=== PATIENT | female | born 1955 | race Caucasian/White ===

== ENCOUNTER 2016-09-24 09:19 | Emergency (ER) | payer MEDICARE ==
[~2016-09-24] VITALS: Ht 167.6 cm; Wt 76.3 kg
[~2016-09-24 09:19] MED LIST: AMBI10TA PO; BUPR100CR PO; DIAZ2 PO; FLUT1SPR5 EACH NARE; GABA100C4 PO; LEXA5TAB PO; LORA-392 PO; MILK140C PO; MULT-135 PO; NADO1TAB16 PO; OXYC1CAP PO; VASO10TA8 PO; VITACAP9 PO; XIFA200T4 PO; ZANA2CAP PO; [UNRECOGNIZED DRUG - CODE] PO
[2016-09-24 09:22] VITALS: BP 137/70; PULSE 74; RESP 16; TEMP 97.8; O2SAT 95
[2016-09-24 09:54] VITALS: BP 148/79; PULSE 70; RESP 16; TEMP 99.1; O2SAT 94
[2016-09-24] MEDS ORDERED: MORPHINE SULFATE 4 MG/ML INJ IV ONE (10:00)
[2016-09-24] MEDS ORDERED: LORazepam 2 MG/ML VIAL IV PUSH ONE (10:00)
--- NOTE | 2016-09-24 10:45 | PD ---
HPI . Back pain Chief Complaint: Back/ Neck Pain or Injury Time Seen by Provider: 09:55 Travel History International Travel<30 days: No Contact w/Intl Traveler<30days: No Traveled to known affect area: No History of Present Illness HPI Patient presents with a chief complaint of back pain that started last night. She states that it radiates to her left leg. She states that she took oxycodone and baclofen for her back pain at about 6:00 this morning with no relief. Chronic neck and low back pain. She states that she is followed by a pain management doctor. She states that she routinely receives injections in both her neck and her back. She further states that she has had difficulty urinating for the past several months. She states that she feels like she is inadequately emptying her bladder. She has frequency of urination and urgency of urination. She does not have dysuria. She reports that she has not mentioned these symptoms to any of her doctors. Patient reports a recent MRI of her neck. [facility] Past Medical History Anemia: Yes Arthritis: Yes Asthma: No Anxiety: Yes Depression: Yes Heart Rhythm Problems: No Cancer: No Cardiac Catheterization: No Cardiovascular Problems: No High Cholesterol: No Chest Pain: Yes Congestive Heart Failure: No Cirrhosis: Yes COPD: No Diabetes: No Diminished Hearing: No Endocrine: No Gastrointestinal Disorders: Yes (ARMIJO'S ESOPHOGUS POSS, REFLUX) GERD: Yes Genitourinary: No Headaches: Yes Hepatitis: Yes (C) Hiatal Hernia: No Hypertension: Yes Immune Disorder: Yes (HEPATITES C) Implanted Vascular Access Dvce: Yes Musculoskeletal: Yes (CERVICAL SPINE INJURY, CHRONIC BACK & NECK PAIN) Neurologic: No Psychiatric: Yes (PANIC DISORDER, ANXIETY, DEPRESSION, CLAUSTAPHOBIA) Respiratory: No Pancreatitis: Yes Pneumonia: Yes Sleep Apnea: No Thyroid Disease: No ?: Not Menopausal: Yes : 3 Para: 1 Miscarriage: 2 Past Surgical History Abdominal Surgery: Yes (PARAS, BLOCKAGE OF BILE DUCT) Body Medical Devices: PLATE IN NECK Cholecystectomy: Yes Coronary Artery Bypass Graft: No Eye Surgery: Yes (LENS CATARACT SX BILAT) Gynecologic Surgery: Yes (OVARIES REMOVED) Hysterectomy: Yes (REMOVED WILBERT OVARIES) Joint Replacement: Yes (LEFT TOTAL KNEE) Neurologic Surgery: Yes (C SPINE X 3) Pacemaker: No Other Surgery: Yes (BREAST AUGMENTATION) Social History Alcohol Use: No Tobacco Use: Yes Substance Use: No Allergies-Medications (Allergen,Severity, Reaction): Coded Allergies: No Known Allergies (Unverified , 01/27/16) Reported Meds & Prescriptions Reported Meds & Active Scripts Active Reported Wellbutrin SR 12 HR (Bupropion HCl) 100 Mg Tab 100 Mg PO DAILY Caprylic Acid (Caprylic Acid (Bulk)) 1 Liq Liq 1 Syringe PO DAILY Valium (Diazepam) 2 Mg Tab 2.5 Mg PO HS PRN Vasotec (Enalapril Maleate) 10 Mg Tab 10 Mg PO HS Lexapro (Escitalopram Oxalate) 5 Mg Tab 5 Mg PO DAILY Flonase Allergy Relief Nasal [place] (Fluticasone Nasal [place]) 50 Mcg/Act [place] 50 Mcg EACH NARE DAILY Gabapentin 100 Mg Cap 200 Mg PO HS Ativan (Lorazepam) 0.5 Mg Tab 0.5 Mg PO QID PRN Milk Thistle 140 Mg Cap 1 Cap PO DAILY Multi Vitamin (Multiple Vitamin) 1 Tab Tab 1 Tab PO DAILY Corgard (Nadolol) 20 Mg Tab 20 Mg PO DAILY Oxycodone (Oxycodone HCl) 5 Mg Cap 5 Mg PO TID PRN Zanaflex (Tizanidine HCl) 2 Mg Cap 2 Mg PO Q8HR Vitamin B Complex-C (B Complex W/ C) 1 Cap Cap 1 Cap PO DAILY Xifaxan (Rifaximin) 200 Mg Tab 500 Mg PO BID Ambien (Zolpidem Tartrate) 10 Mg Tab 10 Mg PO HS PRN Review of Systems Except as stated in HPI: all other systems reviewed are Neg General / Constitutional: No: Fever, Chills Genitourinary: Positive: Urgency, Frequency, Nocturia, Decreased Urinary Output , No: Dysuria Musculoskeletal: Positive: Myalgias, Arthralgias Neurologic: Positive: Paresthesia (radiculopathy of the left leg) Physical Exam Narrative GENERAL: Awake and alert and in no acute distress. SKIN: Warm and dry. HEAD: Atraumatic. Normocephalic. EYES: Pupils equal and round. Extraocular movements are intact. ENT: No nasal bleeding or discharge. Mucous membranes pink and moist. NECK: Trachea midline. Neck is supple. CARDIOVASCULAR: Regular rate and rhythm. Heart sounds are normal. RESPIRATORY: No accessory muscle use. Lungs are clear with full air movement throughout. GASTROINTESTINAL: Abdomen soft, non-tender, nondistended. I do not feel a distended bladder. MUSCULOSKELETAL: No obvious deformities. No edema. No tenderness to percussion along the lumbar spine. Straight leg raise is negative. NEUROLOGICAL: Awake and alert. No obvious cranial nerve deficits. Motor grossly within normal limits. Normal speech. She is able to ambulate without difficulty. PSYCHIATRIC: Appropriate mood and affect; insight and judgment normal. Data Data Last Documented VS Vital Signs Date Time Temp Pulse Resp B/P Pulse Ox O2 Delivery O2 Flow Rate FiO2 09/24/16 09:54 99.1 70 16 148/79 94 Orders Mri L Spine W/O Contrast (09/24/16 09:55) Morphine Inj (Morphine Inj) (09/24/16 10:00) Lorazepam Inj (Ativan Inj) (09/24/16 10:00) Bladder Scan PRN (09/24/16 09:59) Urinalysis - C+S If Indicated (09/24/16 10:40) Drug Screen, Random Urine (09/24/16 10:40) Labs Laboratory Tests Test 09/24/16 10:50 Urine Color LIGHT-YELLOW Urine Turbidity CLEAR Urine pH 7.5 Urine Specific [place] 1.002 Urine Protein NEG mg/dL Urine Glucose (UA) NEG mg/dL Urine Ketones NEG mg/dL Urine Occult Blood NEG Urine Nitrite NEG Urine Bilirubin NEG Urine Urobilinogen LESS THAN 2.0 MG/DL Urine Leukocyte Esterase NEG Urine WBC 1 /hpf Urine Squamous Epithelial 1 /hpf Cells Microscopic Urinalysis Comment CULT NOT INDICATED MDM Medical Decision Making Medical Screen Exam Complete: Yes Emergency Medical Condition: Yes Differential Diagnosis Differential diagnosis includes but is not limited to muscular low back pain, DDD, spinal stenosis, epidural abscess, sciatica, kidney infection or stone. Narrative Course Patient presents with back pain with lumbar radiculopathy involving the left leg. She reports difficulty completely emptying her bladder. I have ordered a bladder scan following to assess for retention. I have also ordered an MRI of her back. Bladder scan revealed 11 cc of residual urine. MRI CONCLUSION: 1. Mild scoliosis with mild multilevel degenerative change. Degenerative changes consist mostly of facet arthrosis. No significant spinal canal stenosis or neural foraminal narrowing is identified. 2. Enlarged distal common bile duct measuring up to 13 mm. Patient is post cholecystectomy so this may represent a chronic finding. Suggest correlation with the clinical history or exam to ensure there are no findings to suggest bile duct obstruction. Diagnosis Primary Impression: Chronic back pain Qualified Code: M54.42 - Chronic left-sided low back pain with left-sided sciatica Patient Instructions: General Instructions, Narcotic given in the ED, Sciatica (DC) Med/Other Pt SpecificInfo: Prescription(s) given Scripts Prednisone (48) 10 mg tab Dose Pack 10 Mg Dspk10 Mg PO DIRECTED #1 DSPK Ref 0 Prov:Eva Brown MD 09/24/16 Disposition: 01 DISCHARGE HOME Condition: Stable Eva Brown MD Sep 24, 2016 10:45
[2016-09-24 11:08] LABS: BLOOD, URINE NEG (NEG); COMMENT (UR) CULT NOT INDICATED; CULTURE IF INDICATED CULT NOT INDICATED; GLUCOSE,URINE NEG (NEG); KETONE, URINE NEG (NEG); NITRITE,URINE NEG (NEG); PH, URINE 7.5 (5.0-8.5); SQUAMOUS EPITHELIAL CELL URINE 1 /hpf (0-5); URINE COLOR LIGHT-YELLOW (YELLW/STRAW)
--- NOTE | 2016-09-24 11:57 | RADRPT ---
EXAM DATE/TIME: 09/24/2016 11:14 [facility] COMPARISON: No previous studies available for comparison. INDICATIONS : Incontinence. Increasing back pain. MEDICAL HISTORY : Hepatitis C. Pancreatitis. SURGICAL HISTORY : Cholecystectomy. Fusion, cervical. knee replacement ENCOUNTER: Initial ACUITY: 1 day PAIN SCORE: 6/10 LOCATION: lower back TECHNIQUE: Multiplanar multisequence MRI of the lumbar spine was performed without contrast. FINDINGS: The most caudal appearing lumbar vertebra is numbered as L5. VERTEBRAE: Bone marrow signal is within normal limits. There is no anterolisthesis or retrolisthesis. There is m ild rightward convex curvature. No fracture is seen. CONUS: Normal level and configuration. T12-L1: No disc herniation, canal stenosis, or neural foraminal stenosis. L1-L2: No disc herniation, canal stenosis, or neural foraminal stenosis. There is mild facet hypertrophy. L2-L3: There is a mild diffuse disc bulge with mild facet and ligamentum flavum hypertrophy. No spinal canal stenosis or significant neural foraminal narrowing is present. L3-L4: There is a diffuse disc bulge with moderate facet hypertrophy, left greater than right. No spinal can al stenosis is present. There is mild narrowing of the left neural foramen. L4-L5: There are is moderate facet hypertrophy. No disc herniation, canal stenosis, or neural foraminal sten osis is present. L5-S1: No disc herniation, canal stenosis, or neural foraminal stenosis. The visualized paraspinous structures demonstrate no acute finding. The distal common bile duct is en larged measuring approximately 13 mm. CONCLUSION: 1. Mild scoliosis with mild multilevel degenerative change. Degenerative changes consist mostly of fa cet arthrosis. No significant spinal canal stenosis or neural foraminal narrowing is identified. 2. Enlarged distal common bile duct measuring up to 13 mm. Patient is post cholecystectomy so this ma y represent a chronic finding. Suggest correlation with the clinical history or exam to ensure there are no findings to suggest bile duct obstruction. Marcelino Jernigan MD on September 24, 2016 at 11:50 Board Certified Radiologist. This report was verified electronically.
[2016-09-24] MEDS ORDERED: PRED10PA2 PO (12:12)
[2016-09-24 12:16] LABS: AMPHETAMINE, URINE NEG (NEG); BARBITURATES, URINE NEG (NEG); COCAINE, URINE NEG (NEG)
[2016-09-24 13:18] VITALS: BP 138/76
[2017-01-07] MEDS ORDERED: MULTTAB67 PO (13:57)
[2017-01-12] MEDS ORDERED: ADVA100A INH (08:32)
[2017-01-12] MEDS ORDERED: BACL10TA PO (08:34)
== END 2016-09-24 13:23 | disposition home or self-care (01) ==
LOC: NEPA 09:19
DX: M54.9 Dorsalgia, unspecified (principal); G89.29 Other chronic pain; I10 Essential (primary) hypertension; Z72.0 Tobacco use
CPT/HCPCS: 72148; 80307; 81001; 96374; 96375; 99284; J2060; J2270

== ENCOUNTER 2016-10-19 15:52 | Emergency (ER) | payer MEDICARE ==
[~2016-10-19 15:52] MED LIST changes: +PRED10PA2 PO
[2017-01-07] MEDS ORDERED: MULTTAB67 PO (13:57)
[2017-01-12] MEDS ORDERED: ADVA100A INH (08:32)
[2017-01-12] MEDS ORDERED: BACL10TA PO (08:34)
== END 2016-10-19 16:25 | disposition left against medical advice (07) ==
LOC: NETRI 15:52
DX: M25.572 Pain in left ankle and joints of left foot (principal)
CPT/HCPCS: 99281

== ENCOUNTER → 2016-12-15 | Outpatient (CLI) | payer MEDICARE ==
[~2016-12-15] MED LIST changes: +ADVA100A INH; +BACL10TA PO; +MULTTAB67 PO
--- NOTE | 2016-12-17 10:39 | RSPPFT ---
DATE OF PROCEDURE: 12/15/16 COMMENTS: VOLUMES DYNAMIC: FVC and FEV1 moderately reduced. STATIC: FRC moderately increased, RV severely increased, TLC normal. FLOWS: FEV1% normal; FEF 25-75 severely reduced. DIFFUSION: Moderately reduced. FLOW VOLUME LOOP: Pattern of variable intrathoracic airways obstruction. IMPRESSION: Moderately severe obstructive ventilatory defect with reduction in diffusion and hyperinflation consistent with emphysema. There is an increase in airways resistance but minimal improvement post-bronchodilator.
== END ==
LOC: HRSP 13:05
PROVIDERS: ATTEND Internal Medicine
DX: J44.9 Chronic obstructive pulmonary disease, unspecified (principal)
CPT/HCPCS: 94060; 94620; 94726; 94729

== ENCOUNTER 2017-07-18 12:38 | Emergency (ER) | payer MEDICARE ==
[~2017-07-18] VITALS: Ht 167.6 cm; Wt 73.0 kg
[~2017-07-18 12:38] MED LIST changes: -BACL10TA PO; +META800 PO; -MULT-135 PO; -PRED10PA2 PO; -VITACAP9 PO; -XIFA200T4 PO; +XIFA550T4 PO; -ZANA2CAP PO; -[UNRECOGNIZED DRUG - CODE] PO
[2017-07-18 12:40] VITALS: BP 137/95; PULSE 64; RESP 16; TEMP 97.6; O2SAT 96
--- NOTE | 2017-07-18 13:04 | PD ---
HPI Chief Complaint: Complaint Time Seen by Provider: 12:51 Travel History International Travel<30 days: No Contact w/Intl Traveler<30days: No Traveled to known affect area: No History of Present Illness HPI 61 y/o female presents with low back pain, hematuria, chills and nauseous feeling over the past couple of days. She denies frequent history of urinary tract infection. She states she does take chronic pain medication for her back. She denies any trauma. She denies other concurrent complaints. Quality is pressure. Severity is moderate. She denies specific modifying factors. PFSH Past Medical History Anemia: Yes Arthritis: Yes Asthma: No Anxiety: Yes Depression: Yes Heart Rhythm Problems: No Cancer: No Cardiac Catheterization: No Cardiovascular Problems: No High Cholesterol: No Chest Pain: Yes Congestive Heart Failure: No Cirrhosis: Yes COPD: No Diabetes: No Diminished Hearing: No Endocrine: No Gastrointestinal Disorders: Yes (ARMIJO'S ESOPHOGUS POSS, REFLUX) GERD: Yes Genitourinary: No Headaches: Yes Hepatitis: Yes (C) Hiatal Hernia: No Hypertension: Yes Immune Disorder: Yes (HEPATITES C) Implanted Vascular Access Dvce: Yes Musculoskeletal: Yes (CERVICAL SPINE INJURY, CHRONIC BACK & NECK PAIN) Neurologic: No Psychiatric: Yes (PANIC DISORDER, ANXIETY, DEPRESSION, CLAUSTAPHOBIA) Respiratory: Yes (COPD) Pancreatitis: Yes Pneumonia: Yes Sleep Apnea: No Thyroid Disease: No Menopausal: Yes : 3 Para: 1 Miscarriage: 2 Past Surgical History Abdominal Surgery: Yes (PARAS, BLOCKAGE OF BILE DUCT) Body Medical Devices: PLATE IN NECK Cholecystectomy: Yes Coronary Artery Bypass Graft: No Eye Surgery: Yes (LENS CATARACT SX BILAT) Gynecologic Surgery: Yes (OVARIES REMOVED) Hysterectomy: Yes (REMOVED WILBERT OVARIES) Joint Replacement: Yes (LEFT TOTAL KNEE) Neurologic Surgery: Yes (C SPINE X 3) Pacemaker: No Other Surgery: Yes (BREAST AUGMENTATION) Family History Family Myocardial Infarction: Yes (SISTER) Social History Alcohol Use: No Tobacco Use: No Substance Use: No Allergies-Medications (Allergen,Severity, Reaction): Coded Allergies: meperidine (Verified Allergy, Severe, Hives, 05/31/17) No Known Allergies (Unverified Allergy, Unknown, 07/18/17) Reported Meds & Prescriptions Reported Meds & Active Scripts Active Reported Skelaxin (Metaxalone) 800 Mg Tablet 800 Mg PO TID Xifaxan (Rifaximin) 550 Mg Tab 550 Mg PO Q12HR Advair Diskus Inh (Fluticasone-Salmeterol Inh) 100-50 Mcg/Blist Aer 1 Puff INH BID Rinse mouth after use. Wellbutrin SR 12 HR (Bupropion HCl) 100 Mg Tab 100 Mg PO DAILY Valium (Diazepam) 2 Mg Tab 2.5 Mg PO HS PRN Vasotec (Enalapril Maleate) 10 Mg Tab 10 Mg PO HS Ativan (Lorazepam) 0.5 Mg Tab 0.5 Mg PO QID PRN Corgard (Nadolol) 20 Mg Tab 20 Mg PO DAILY Oxycodone (Oxycodone HCl) 5 Mg Cap 5 Mg PO TID PRN Ambien (Zolpidem Tartrate) 10 Mg Tab 10 Mg PO HS PRN Review of Systems Except as stated in HPI: all other systems reviewed are Neg Physical Exam Narrative GENERAL: Well-nourished, well-developed patient. well appearing SKIN: Warm and dry. HEAD: Normocephalic and atraumatic. EYES: No injection or drainage. ENT: No nasal drainage noted. NECK: Supple, trachea midline. CARDIOVASCULAR: Regular rate and rhythm RESPIRATORY: Breath sounds equal bilaterally. No accessory muscle use. GASTROINTESTINAL: Abdomen soft, non-tender, nondistended. EXTREMITIES: No edema. BACK: Nontender without obvious deformity. no cvat NEUROLOGICAL: Awake and alert. moves extremities and sensory grossly within normal limits. Normal speech. Data Data Last Documented VS Vital Signs Date Time Temp Pulse Resp B/P (MAP) Pulse Ox O2 Delivery O2 Flow Rate FiO2 07/18/17 15:09 56 18 121/62 (81) 95 Room Air 07/18/17 12:40 97.6 Orders Orders Complete Blood Count With Diff (07/18/17 12:51) Basic Metabolic Panel (Bmp) (07/18/17 12:51) Urinalysis - C+S If Indicated (07/18/17 12:51) Iv Access Insert/Monitor (07/18/17 12:51) Ecg Monitoring (07/18/17 12:51) Oximetry (07/18/17 12:51) Ct Abd/Pel W/O Iv Contrast (07/18/17 ) Ed Discharge Order (07/18/17 14:51) Labs Laboratory Tests Test 07/18/17 13:00 07/18/17 13:35 07/18/17 13:45 Urine Color YELLOW Urine Turbidity CLEAR Urine pH 7.0 Urine Specific [place] 1.007 Urine Protein NEG mg/dL Urine Glucose (UA) NEG mg/dL Urine Ketones NEG mg/dL Urine Occult Blood NEG Urine Nitrite NEG Urine Bilirubin NEG Urine Urobilinogen LESS THAN 2.0 MG/DL Urine Leukocyte Esterase NEG Urine WBC 1 /hpf Urine Squamous Epithelial Cells <1 /hpf Microscopic Urinalysis Comment CULT NOT INDICATED Blood Urea Nitrogen 11 MG/DL Creatinine 1.00 MG/DL Random Glucose 100 MG/DL Calcium Level 8.9 MG/DL Sodium Level 134 MEQ/L Potassium Level 4.6 MEQ/L Chloride Level 109 MEQ/L Carbon Dioxide Level 18.1 MEQ/L Anion Gap 7 MEQ/L Estimat Glomerular Filtration Rate 56 ML/MIN White Blood Count 7.0 TH/MM3 Red Blood Count 3.91 MIL/MM3 Hemoglobin 14.0 GM/DL Hematocrit 38.2 % Mean Corpuscular Volume 97.8 FL Mean Corpuscular Hemoglobin 35.9 PG Mean Corpuscular Hemoglobin Concent 36.7 % Red Cell Distribution Width 14.1 % Platelet Count 109 TH/MM3 Mean Platelet Volume 9.5 FL Neutrophils (%) (Auto) 71.6 % Lymphocytes (%) (Auto) 18.4 % Monocytes (%) (Auto) 8.7 % Eosinophils (%) (Auto) 1.1 % Basophils (%) (Auto) 0.2 % Neutrophils # (Auto) 5.0 TH/MM3 Lymphocytes # (Auto) 1.3 TH/MM3 Monocytes # (Auto) 0.6 TH/MM3 Eosinophils # (Auto) 0.1 TH/MM3 Basophils # (Auto) 0.0 TH/MM3 CBC Comment AUTO DIFF Differential Comment AUTO DIFF CONFIRMED [facility] Medical Decision Making Medical Screen Exam Complete: Yes Emergency Medical Condition: Yes Medical Record Reviewed: Yes (pmh confirmed) Interpretation(s) CBC & BMP Diagram 07/18/17 13:35 Calcium Level 8.9 07/18/17 13:45 Last 24 hours Impressions Abdomen/Pelvis CT 07/18/17 0000 Signed Impressions: Service Date/Time: Tuesday, July 18, 2017 14:00 - CONCLUSION: 1. Cirrhotic liver. 2. Splenomegaly likely secondary to portal hypertension given the cirrhosis. 3. Mild lower lumbar spine degenerative change. Marcelino Ware MD ua no acute Differential Diagnosis UTI, stone, renal failure, URI Narrative Course Will check blood work, urinalysis, CT scan abdominal pelvis and reevaluate ed workup without emergent process, Patient denies any new complaints and states that they are feeling better. Patient happy with care, all questions answered. Patient knows that follow up is incumbent on them and to return to the emergency room immediately if new or worsening symptoms develop. Patient given strict return precautions, vitals reviewed and are normal, agrees to further workup as an outpatient. Diagnosis Primary Impression: Back pain Qualified Codes: M54.9 - Dorsalgia, unspecified Additional Impressions: Nausea Chills History of hematuria Patient Instructions: General Instructions Additional Instructions: return as needed, follow with primary this week Med/Other Pt SpecificInfo: No Change to Meds Disposition: 01 DISCHARGE HOME Condition: Stable Lela Osborne MD Jul 18, 2017 13:04
[2017-07-18 13:28] VITALS: BP 158/73; PULSE 57; RESP 24; O2SAT 94
[2017-07-18 13:46] LABS: BILIRUBIN, URINE NEG (NEG); BLOOD, URINE NEG (NEG); GLUCOSE,URINE NEG (NEG); KETONE, URINE NEG (NEG); NITRITE,URINE NEG (NEG); SQUAMOUS EPITHELIAL CELL URINE <1 /hpf (0-5); URINE COLOR YELLOW (YELLW/STRAW); URINE LEUKOCYTE ESTERASE NEG (NEG)
[2017-07-18 14:03] LABS: BASOPHIL % 0.2 % (0.0-2.0); EOSINOPHIL # 0.1 TH/MM3 (0-0.4); EOSINOPHIL % 1.1 % (0.0-4.0); HEMATOCRIT 38.2 % (35.0-46.0); LYMPH % 18.4 % (9.0-44.0); LYMPHOCYTE # 1.3 TH/MM3 (1.0-4.8); MEAN CELL VOLUME 97.8 FL (80.0-100.0); MEAN CORPUSCULAR HEMOGLOBIN 35.9 PG (27.0-34.0); MEAN PLATELET VOLUME 9.5 FL (7.0-11.0); MONO % 8.7 % (0.0-8.0); MONOCYTE # 0.6 TH/MM3 (0-0.9); NEUT % 71.6 % (16.0-70.0); PLATELET COUNT 109 TH/MM3 (150-450); RED BLOOD COUNT 3.91 MIL/MM3 (4.00-5.30); RED CELL DISTRIBUTION WIDTH 14.1 % (11.6-17.2)
[2017-07-18 14:04] LABS: MEAN CORPUSCULAR HGB CONC 36.7 % (32.0-36.0)
[2017-07-18 14:15] LABS: BICARBONATE 18.1 MEQ/L (21.0-32.0); CALCIUM 8.9 MG/DL (8.5-10.1)
--- NOTE | 2017-07-18 14:41 | RADRPT ---
EXAM DATE/TIME: 07/18/2017 14:00 [facility] COMPARISON: No previous studies available for comparison. INDICATIONS : Lower back pain for two days. ORAL CONTRAST: No oral contrast ingested. RADIATION DOSE: 13.68 CTDIvol (mGy) MEDICAL HISTORY : Chronic obstructive pulmonary disease. Pancreatitis. Hepatitis C. SURGICAL HISTORY : Cholecystectomy. ENCOUNTER: Initial ACUITY: 2 days PAIN SCALE: 7/10 LOCATION: Bilateral flank TECHNIQUE: Volumetric scanning of the abdomen and pelvis was performed. Using automated exposure control and ad justment of the mA and/or kV according to patient size, radiation dose was kept as low as reasonably achievable to obtain optimal diagnostic quality images. DICOM format image data is available electro nically for review and comparison. FINDINGS: LOWER LUNGS: The visualized lower lungs are clear. LIVER: The liver has a diffusely nodular surface. There is hypertrophy of the left lobe. These changes are l ikely related to cirrhosis. The patient is status post cholecystectomy. The common bile duct is dilat ed at 1.5 cm. SPLEEN: The spleen is diffusely enlarged measuring at least 15 cm in length. No focal splenic lesion is seen. PANCREAS: Within normal limits. KIDNEYS: Normal in size and shape. There is no mass, stone, or hydronephrosis. ADRENAL GLANDS: Within normal limits. VASCULAR: There is no aortic aneurysm. Atherosclerotic calcifications are present. BOWEL/MESENTERY: The stomach, small bowel, and colon demonstrate no acute abnormality. There is no free intraperitone al air or fluid. The appendix appears normal. ABDOMINAL WALL: Within normal limits. RETROPERITONEUM: There is no lymphadenopathy. BLADDER: No wall thickening or mass. REPRODUCTIVE: Within normal limits. INGUINAL: There is no lymphadenopathy or hernia. MUSCULOSKELETAL: There is mild degenerative change of the lower lumbar spine. CONCLUSION: 1. Cirrhotic liver. 2. Splenomegaly likely secondary to portal hypertension given the cirrhosis. 3. Mild lower lumbar spine degenerative change. Marcelino Ware MD on July 18, 2017 at 14:32 Board Certified Radiologist. This report was verified electronically.
[2017-07-18 15:09] VITALS: BP 121/62; PULSE 56; RESP 18; O2SAT 95
== END 2017-07-18 15:30 | disposition home or self-care (01) ==
LOC: NEPC 12:38
DX: M54.9 Dorsalgia, unspecified (principal); K74.60 Unspecified cirrhosis of liver; R16.1 Splenomegaly, not elsewhere classified; R68.83 Chills (without fever); R31.9 Hematuria, unspecified; M51.36 Other intervertebral disc degeneration, lumbar region; D64.9 Anemia, unspecified; K21.9 Gastro-esophageal reflux disease without esophagitis; I10 Essential (primary) hypertension
CPT/HCPCS: 74176; 80048; 81001; 85025; 99284

== ENCOUNTER → 2017-10-26 | Outpatient (CLI) | payer MEDICARE ==
[~2017-10-26] MED LIST changes: -FLUT1SPR5 EACH NARE; -GABA100C4 PO; -LEXA5TAB PO; -MILK140C PO; -MULTTAB67 PO
--- NOTE | 2017-11-01 10:37 | RSPPFT ---
DATE OF PROCEDURE: 10/26/17 COMMENTS: VOLUMES DYNAMIC: FVC and FEV1 mildly reduced. STATIC: FRC, RV and TLC normal. FLOWS: FEV1% normal; FEF 25-75 moderately reduced. DIFFUSION: Moderately reduced. FLOW VOLUME LOOP: Terminal airflow obstruction. IMPRESSION: Mild obstructive ventilatory defect with a moderate reduction in diffusion and no significant hyperinflation. There is no significant improvement post-bronchodilator.
== END ==
LOC: HRSP 13:09
PROVIDERS: ATTEND Internal Medicine
DX: J44.9 Chronic obstructive pulmonary disease, unspecified (principal)
CPT/HCPCS: 94060; 94726; 94729

== ENCOUNTER 2017-11-26 18:16 | Emergency (ER) | payer MEDICARE ==
[~2017-11-26] VITALS: Ht 167.6 cm; Wt 78.0 kg
[~2017-11-26 18:16] MED LIST changes: +ACET500T13 PO; -META800 PO; +ORPH100T2 PO; +PROT40TA PO
[2017-11-26 18:29] VITALS: BP 174/80; PULSE 57; RESP 18; TEMP 98.3; O2SAT 97
[2017-11-26] MEDS ORDERED: FLUT1AER4 INH (19:13)
[2017-11-26] MEDS ORDERED: ENAL10TA PO (19:13)
[2017-11-26 19:15] VITALS: BP 169/87; PULSE 60; RESP 16; O2SAT 97
--- NOTE | 2017-11-26 19:52 | PD ---
HPI . headache Chief Complaint: Head Injury Time Seen by Provider: 19:09 Travel History International Travel<30 days: No Contact w/Intl Traveler<30days: No Traveled to known affect area: No History of Present Illness HPI pt was in [facility] 9 days ago and a box containing a child mobile fell onto the top of her head and she has had a constant headache since then , she can not take motrin nor tylenol due to platelet issue? and mild hepatitis cirrhosis from Hep C and , She took her oxycodone that made the pain worse? , pt is awake alert and complains of localized headache right sided parietal l area and right should and neck pain since 9 days , not responding to home treatment . No vomit no ataxia no visual changes over the last 9 days since head injury. PFSH Past Medical History Anemia: Yes Arthritis: Yes Asthma: No Anxiety: Yes Depression: Yes Heart Rhythm Problems: No Cancer: No Cardiac Catheterization: No Cardiovascular Problems: No High Cholesterol: No Chest Pain: Yes Congestive Heart Failure: No Cirrhosis: Yes COPD: No Diabetes: No Diminished Hearing: No Endocrine: No Gastrointestinal Disorders: Yes (ARMIJO'S ESOPHOGUS POSS, REFLUX) GERD: Yes Genitourinary: No Headaches: Yes Hepatitis: Yes (C) Hiatal Hernia: No Hypertension: Yes Immune Disorder: Yes (HEPATITES C) Implanted Vascular Access Dvce: Yes Musculoskeletal: Yes (CERVICAL SPINE INJURY, CHRONIC BACK & NECK PAIN) Neurologic: No Psychiatric: Yes (PANIC DISORDER, ANXIETY, DEPRESSION, CLAUSTAPHOBIA) Respiratory: Yes (COPD) Pancreatitis: Yes Pneumonia: Yes Sleep Apnea: No Thyroid Disease: No Influenza Vaccination: No ?: Not Menopausal: Yes : 3 Para: 1 Miscarriage: 1 Past Surgical History Abdominal Surgery: Yes (PARAS, BLOCKAGE OF BILE DUCT) Body Medical Devices: PLATE IN NECK Cholecystectomy: Yes Coronary Artery Bypass Graft: No Eye Surgery: Yes (LENS CATARACT SX BILAT) Gynecologic Surgery: Yes (OVARIES REMOVED) Hysterectomy: Yes (REMOVED WILBERT OVARIES) Joint Replacement: Yes (LEFT TOTAL KNEE) Neurologic Surgery: Yes (C SPINE X 3) Pacemaker: No Other Surgery: Yes (BREAST AUGMENTATION) Family History Family Myocardial Infarction: Yes (SISTER) Social History Alcohol Use: Yes (very rare) Tobacco Use: No (quit 2016) Substance Use: No Allergies-Medications (Allergen,Severity, Reaction): Coded Allergies: meperidine (Verified Allergy, Severe, Hives, 11/26/17) Reported Meds & Prescriptions Reported Meds & Active Scripts Active Ambien (Zolpidem Tartrate) 10 Mg Tab 10 Mg PO HS PRN Fioricet (Kxeviajaol-Zuksokrwlkzpt-Jwbtnoxz) 50-300-40 Mg Cap 1 Cap PO Q4H PRN Reported Fluticasone-Salmeterol Inh 113-14 Mcg Inh 2 Puff INH BID Enalapril (Enalapril Maleate) 10 Mg Tab 10 Mg PO DAILY APAP Extra Strength (Acetaminophen) 500 Mg Tab 500 Mg PO Q4-6H PRN Orphenadrine CR (Orphenadrine Citrate) 100 Mg Tab 100 Mg PO DAILY Protonix (Pantoprazole Sodium) 40 Mg Tab 40 Mg PO DAILY Xifaxan (Rifaximin) 550 Mg Tab 550 Mg PO Q12HR Wellbutrin SR 12 HR (Bupropion HCl) 100 Mg Tab 100 Mg PO DAILY Valium (Diazepam) 2 Mg Tab 2.5 Mg PO HS PRN Ativan (Lorazepam) 0.5 Mg Tab 0.5 Mg PO QID PRN Corgard (Nadolol) 20 Mg Tab 20 Mg PO DAILY Oxycodone (Oxycodone HCl) 5 Mg Cap 10 Mg PO TID PRN Ambien (Zolpidem Tartrate) 10 Mg Tab 10 Mg PO HS PRN Review of Systems Except as stated in HPI: all other systems reviewed are Neg HENT: Positive: Headaches Physical Exam Narrative GENERAL: awake alert no signs of confusion of head injury no AMS SKIN: Warm and dry. HEAD: Atraumatic. Normocephalic. slight bump on right pareital area EYES: Pupils equal and round. No scleral icterus. No injection or drainage. ENT: No nasal bleeding or discharge. Mucous membranes pink and moist. NECK: Trachea midline. No JVD. CARDIOVASCULAR: Regular rate and rhythm. RESPIRATORY: No accessory muscle use. Clear to auscultation. Breath sounds equal bilaterally. GASTROINTESTINAL: Abdomen soft, non-tender, nondistended. Hepatic and splenic margins not palpable. MUSCULOSKELETAL: Extremities without clubbing, cyanosis, or edema. No obvious deformities. NEUROLOGICAL: Awake and alert. No obvious cranial nerve deficits. Motor grossly within normal limits. Five out of 5 muscle strength in the arms and legs. Normal speech. PSYCHIATRIC: Appropriate mood and affect; insight and judgment normal. Data Data Last Documented VS Vital Signs Date Time Temp Pulse Resp B/P (MAP) Pulse Ox O2 Delivery O2 Flow Rate FiO2 11/26/17 21:10 11/26/17 21:05 55 16 96 Room Air 11/26/17 18:29 98.3 Orders Orders Cwcf-Xtezp-Symm 325-50-40 Mg (Fioricet 3 (11/26/17 20:00) Hydromorphone Pf Inj (Dilaudid Pf Inj) (11/26/17 20:15) Ondansetron Odt (Zofran Odt) (11/26/17 20:15) Ed Discharge Order (11/26/17 21:02) MDM Medical Decision Making Medical Screen Exam Complete: Yes Emergency Medical Condition: Yes Differential Diagnosis ddx headache unrelated to trauma. vs intracranial injury vs Epidural vs subdural subacute vs fractured skull other Narrative Course I decide no neurologic Sx haver occurred over the last [address] had not indicated . I will treat the pain and re-eval ... Dilaudid 1mg IM and fioricet PO . After 1 hr pt feels much better and ready for discharge Diagnosis Primary Impression: Headache Qualified Codes: R51 - Headache Patient Instructions: Acute Headache (ED), General Instructions Scripts Zolpidem (Ambien) 10 Mg Tab 10 MG PO HS Y for INSOMNIA, #6 TAB 0 Refills Prov: Michael Herring MD 11/26/17 Zvpsxhinkh-Lzszhwarfpbea-Dsytbkpj (Fioricet) 50-300-40 Mg Cap 1 CAP PO Q4H Y for HEADACHE, #12 CAP 0 Refills Prov: Michael Herring MD 11/26/17 Disposition: 01 DISCHARGE HOME Condition: Good Michael Herring MD November 26, 2017 19:52
[2017-11-26] MEDS ORDERED: ACETAMIN 325 MG/BUTALBITAL 50 MG/CAFFEINE 40 MG TAB PO ONE (20:00)
[2017-11-26] MEDS ORDERED: HYDROmorphone HCL PF 1 MG/ML VIAL IM ONE (20:00)
[2017-11-26] MEDS ORDERED: HYDROmorphone HCL PF 4 MG/ML VIAL IV PUSH ONE (20:15)
[2017-11-26] MEDS ORDERED: HYDROmorphone HCL PF 4 MG/ML VIAL IM ONE (20:15)
[2017-11-26] MEDS ORDERED: ONDANSETRON ODT 4 MG TAB PO ONE (20:15)
[2017-11-26] MEDS ORDERED: BUTA1CAP PO (21:02)
[2017-11-26] MEDS ORDERED: AMBI10TA PO (21:02)
[2017-11-26 21:05] VITALS: BP 151/77; PULSE 55; RESP 16; O2SAT 96
== END 2017-11-26 21:15 | disposition home or self-care (01) ==
LOC: PHED 18:16
DX: R51 Headache (principal); W20.8XXA Other cause of strike by thrown, projected or falling object, initial encounter; Y92.512 Supermarket, store or market as the place of occurrence of the external cause; F41.9 Anxiety disorder, unspecified; F32.9 Major depressive disorder, single episode, unspecified; I10 Essential (primary) hypertension; K74.60 Unspecified cirrhosis of liver; B19.20 Unspecified viral hepatitis C without hepatic coma; Z87.891 Personal history of nicotine dependence
CPT/HCPCS: 96372; 99283; J1170

== ENCOUNTER 2017-12-08 20:09 | Emergency (ER) | payer MEDICARE ==
[~2017-12-08 20:09] MED LIST changes: -ADVA100A INH; +BUTA1CAP PO; +ENAL10TA PO; +FLUT1AER4 INH; -VASO10TA8 PO
[2017-12-08 20:20] VITALS: BP 141/78; PULSE 72; RESP 16; TEMP 98.2; O2SAT 95
[2017-12-08 20:41] VITALS: BP 148/78; PULSE 68; RESP 16; O2SAT 96
[2017-12-08] MEDS ORDERED: SODIUM CHLOR 0.9% 1000 ML INJ 1,000 ML IV ONE (21:00)
[2017-12-08] MEDS ORDERED: PROCHLORPERAZINE INJ 10 MG/2 ML VIAL IV PUSH ONE (21:00)
--- NOTE | 2017-12-08 21:09 | RADRPT ---
EXAM DATE: 12/08/2017 9:06 PM EDT AGE/SEX: 62 years / Female INDICATIONS: Cephalgia. CLINICAL DATA: This is the patient's initial encounter. Patient reports that signs and symptoms have been present for 2 weeks and indicates a pain score of 8/10. MEDICAL/SURGICAL HISTORY: Hypertension. Hepatitis C. None. RADIATION DOSE: 51.78 CTDI (mGy) COMPARISON: No prior [facility] exams available for comparison. TECHNIQUE: CT of the head without contrast. Using automated exposure control and adjustment of the mA and/or kV according to patient size, radiation dose was kept as low as reasonably achievable to ob tain optimal diagnostic quality images. FINDINGS: Cerebrum: The ventricles are normal for age. No evidence of midline shift, mass lesion, hemorrhage or acute infarction. No extraaxial fluid collections are seen. Posterior Fossa: The cerebellum and brainstem are intact. The 4th ventricle is midline. The cerebe llopontine angle is unremarkable. Extracranial: The visualized portion of the orbits is intact. Skull: The calvaria is intact. No evidence of skull fracture. CONCLUSION: 1. Negative noncontrast CT brain. Electronically signed by: Terrell Carr MD 12/08/2017 9:08 PM EDT
[2017-12-08 21:41] VITALS: BP 128/72; PULSE 62; RESP 18; O2SAT 97
--- NOTE | 2017-12-08 21:58 | PD ---
HPI Chief Complaint: Headache Time Seen by Provider: 20:30 Travel History International Travel<30 days: No Contact w/Intl Traveler<30days: No Traveled to known affect area: No History of Present Illness HPI 62-year-old female came to the emergency room with history of right sided temporal headache for past 2 and half weeks. Patient says that a large box fell on her head before the pain started and since then the headache has been there. It has been persistent. Patient had come to the emergency room and was seen about a week ago. At that time a CAT scan was not done given the risk of radiation. She was given pain medication and discharged home on Fioricet. Patient says that she cannot take Fioricet since she has history of hepatitis. She also cannot take NSAIDs since she has some platelet disorder. Patient sees scene painter for her chronic neck pain. Pain is just constantly there without any aggravating or relieving factors identified. Vital signs are stable. Patient has history of chronic recurrent headaches PFSH Past Medical History Narrative Medical List of her past medical, surgical, social and family history is reviewed from the nursing note Anemia: Yes Arthritis: Yes Asthma: No Anxiety: Yes Depression: Yes Heart Rhythm Problems: No Cancer: No Cardiac Catheterization: No Cardiovascular Problems: No High Cholesterol: No Chest Pain: Yes Congestive Heart Failure: No Cirrhosis: Yes COPD: No Diabetes: No Diminished Hearing: No Endocrine: No Gastrointestinal Disorders: Yes (ARMIJO'S ESOPHOGUS POSS, REFLUX) GERD: Yes Genitourinary: No Headaches: Yes Hepatitis: Yes (C) Hiatal Hernia: No Hypertension: Yes Immune Disorder: Yes (HEPATITES C) Implanted Vascular Access Dvce: Yes Musculoskeletal: Yes (CERVICAL SPINE INJURY, CHRONIC BACK & NECK PAIN) Neurologic: No Psychiatric: Yes (PANIC DISORDER, ANXIETY, DEPRESSION, CLAUSTAPHOBIA) Respiratory: Yes (COPD) Pancreatitis: Yes Pneumonia: Yes Sleep Apnea: No Thyroid Disease: No Influenza Vaccination: No ?: Not Menopausal: Yes : 3 Para: 1 Miscarriage: 1 Past Surgical History Abdominal Surgery: Yes (PARAS, BLOCKAGE OF BILE DUCT) Body Medical Devices: PLATE IN NECK Cholecystectomy: Yes Coronary Artery Bypass Graft: No Eye Surgery: Yes (LENS CATARACT SX BILAT) Gynecologic Surgery: Yes (OVARIES REMOVED) Hysterectomy: Yes (REMOVED WILBERT OVARIES) Joint Replacement: Yes (LEFT TOTAL KNEE) Neurologic Surgery: Yes (C SPINE X 3) Pacemaker: No Other Surgery: Yes (BREAST AUGMENTATION) Family History Family Myocardial Infarction: Yes (SISTER) Social History Alcohol Use: Yes (very rare) Tobacco Use: No (quit 2016) Substance Use: No Allergies-Medications (Allergen,Severity, Reaction): Coded Allergies: meperidine (Verified Allergy, Severe, Hives, 12/08/17) Comments List of her allergies reviewed from the nursing note. Reported Meds & Prescriptions Reported Meds & Active Scripts Active Ambien (Zolpidem Tartrate) 10 Mg Tab 10 Mg PO HS PRN Fioricet (Akbezuqwok-Bszhfxkhigsxp-Qcpgnwua) 50-300-40 Mg Cap 1 Cap PO Q4H PRN Reported Fluticasone-Salmeterol Inh 113-14 Mcg Inh 2 Puff INH BID Enalapril (Enalapril Maleate) 10 Mg Tab 10 Mg PO DAILY APAP Extra Strength (Acetaminophen) 500 Mg Tab 500 Mg PO Q4-6H PRN Orphenadrine CR (Orphenadrine Citrate) 100 Mg Tab 100 Mg PO DAILY Protonix (Pantoprazole Sodium) 40 Mg Tab 40 Mg PO DAILY Xifaxan (Rifaximin) 550 Mg Tab 550 Mg PO Q12HR Wellbutrin SR 12 HR (Bupropion HCl) 100 Mg Tab 100 Mg PO DAILY Valium (Diazepam) 2 Mg Tab 2.5 Mg PO HS PRN Ativan (Lorazepam) 0.5 Mg Tab 0.5 Mg PO QID PRN Corgard (Nadolol) 20 Mg Tab 20 Mg PO DAILY Oxycodone (Oxycodone HCl) 5 Mg Cap 10 Mg PO TID PRN Ambien (Zolpidem Tartrate) 10 Mg Tab 10 Mg PO HS PRN Narrative Medication List of her home medications reviewed from the nursing note. Review of Systems Except as stated in HPI: all other systems reviewed are Neg Neurologic: Positive: Headache Physical Exam Narrative GENERAL: Awake, alert, mild distress SKIN: Focused skin assessment warm/dry. HEAD: Atraumatic. Normocephalic. EYES: Pupils equal and round. No scleral icterus. No injection or drainage. ENT: No nasal bleeding or discharge. Mucous membranes pink and moist. NECK: Trachea midline. No JVD. CARDIOVASCULAR: Regular rate and rhythm. No murmur appreciated. RESPIRATORY: No accessory muscle use. Clear to auscultation. Breath sounds equal bilaterally. GASTROINTESTINAL: Abdomen soft, non-tender, nondistended. Hepatic and splenic margins not palpable. MUSCULOSKELETAL: No obvious deformities. No clubbing. No cyanosis. No edema. NEUROLOGICAL: Awake and alert. No obvious cranial nerve deficits. Motor grossly within normal limits. Normal speech. PSYCHIATRIC: Appropriate mood and affect; insight and judgment normal. Data Data Last Documented VS Vital Signs Date Time Temp Pulse Resp B/P (MAP) Pulse Ox O2 Delivery O2 Flow Rate FiO2 12/08/17 22:11 66 18 138/82 (100) 97 12/08/17 21:41 Room Air 12/08/17 20:20 98.2 Orders Orders Prochlorperazine Inj (Compazine Inj) (12/08/17 21:00) Sodium Chlor 0.9% 1000 Ml Inj (Ns 1000 M (12/08/17 21:00) Ct Brain W/O Iv Contrast(Rout) (12/08/17 ) Prochlorperazine Inj (Compazine Inj) (12/08/17 22:00) Ed Discharge Order (12/08/17 21:50) [facility] Medical Decision Making Medical Screen Exam Complete: Yes Emergency Medical Condition: Yes Medical Record Reviewed: Yes Differential Diagnosis Acute on chronic headache, intracranial bleed Narrative Course 9:[address] scan of the brain was negative. I had ordered IV Compazine, IV fluid for the treatment of her cephalgia. However the patient is refusing to get any IV since she is a hard stick. She wants something IM. She has been offered IM Compazine and patient has agreed to that. After getting the medication she will be discharged home. She told me that the Fioricet will not work because of her liver issues and she cannot take any NSAIDs because of her platelet issues. I have explained to her that I cannot give her prescription for opiates to go home on for this headache. She will have to follow-up with her scene painter Diagnosis Primary Impression: Cephalgia Qualified Codes: R51 - Headache Additional Impression: Chronic recurrent headache Additional Instructions: Please follow-up with your scene painter. Do not watch television , computer screen or smart phone. Give rest to your brain and eye. Drink coffee and caffeinated. Do not drink alcohol or smoke cigarettes. Do not eat chocolate or cheese since these will exacerbate your headaches. Disposition: 01 DISCHARGE HOME Condition: Stable Angelica,Shravanti R. MD December 08, 2017 21:58
[2017-12-08] MEDS ORDERED: PROCHLORPERAZINE INJ 10 MG/2 ML VIAL IM ONE (22:00)
[2017-12-08 22:11] VITALS: BP 138/82
== END 2017-12-08 22:38 | disposition home or self-care (01) ==
LOC: PHED 20:09
DX: R51 Headache (principal); I10 Essential (primary) hypertension; J44.9 Chronic obstructive pulmonary disease, unspecified; K74.60 Unspecified cirrhosis of liver; F32.9 Major depressive disorder, single episode, unspecified; Z86.19 Personal history of other infectious and parasitic diseases; Z88.8 Allergy status to other drugs, medicaments and biological substances; Z79.899 Other long term (current) drug therapy; Z87.891 Personal history of nicotine dependence
CPT/HCPCS: 70450; 96372; 99283; J0780